=== PATIENT | female | born 1980 | race Caucasian/White ===

== ENCOUNTER 2017-06-20 13:15 | Outpatient (RCR) | payer BC ==
[~2017-06-20 13:15] MED LIST: CEPHALEXIN500 M1 PO; COLACE50 MG; FOLIC ACID 11 MG/TA1 PO; MOTRIN 600600 MG/TAB PO; PERCOCET 325 MG1 TA2 PO; PRENATAL VITAMI1 TAB PO
== END 2017-06-25 ==
LOC: WSOT
DX: Z47.89 Encounter for other orthopedic aftercare (principal)

== ENCOUNTER 2017-12-29 05:35 | Inpatient (IN) | payer MEDICAID ==
[~2017-12-29] VITALS: Ht 154.9 cm; Wt 83.2 kg
[2017-12-29] VITALS (18 sets, daily range): BP systolic 86–112; BP diastolic 45–68; PULSE 56–92; TEMP 98–98.7
[2017-12-29] MEDS ORDERED: COLACE 100100 MG/CAP PO (06:22)
[2017-12-29] MEDS ORDERED: UNISOM25 MG PO (06:23)
[2017-12-29 06:32] LABS: BASO % 0.3 % (0.0-2.0); EOS # 0.1 (0.0-0.7); EOS % 0.5 % (0-4.0); GRAN # 6.6 (1.4-6.5); HEMOGLOBIN 11.5 g/dl (12.5-16.0); LYMPH # 2.6 (1.2-3.4); LYMPH % 25.8 % (20.0-51.0); MEAN CELL VOLUME 87 fl (80.0-100.0); MEAN CORPUSCULAR HEMOGLOBIN 29 pg (27.0-31.0); MEAN CORPUSCULAR HGB CONC 33 g/dl (33.0-37.0); MEAN PLATELET VOLUME 8.9 fl (7.4-10.4); MONO # 0.7 (0.1-0.6); MONO % 6.9 % (1.7-9.3); PLATELET COUNT 213 K/mm3 (130-400); RED BLOOD COUNT 3.97 M/mm3 (4.10-5.30); REDCELL DISTRIBUTION WIDTH-CV 14.4 % (11.5-14.5)
[2017-12-29 06:33] LABS: HEMATOCRIT 34.5 % (37.0-47.0)
[2017-12-30 04:43] VITALS: BP 102/57; PULSE 79; TEMP 98.2
[2017-12-30 08:40] VITALS: BP 99/61; PULSE 74; TEMP 97.7
[2017-12-30 16:50] VITALS: BP 96/50; PULSE 68; TEMP 98.1
[2017-12-30 19:45] VITALS: BP 101/65; PULSE 72; TEMP 98.3
[2017-12-31] MEDS ORDERED: IBU800 M1 PO (08:49)
[2017-12-31] MEDS ORDERED: PERCOCET 325 MG1 TA2 PO (08:50)
[2017-12-31 09:15] VITALS: BP 106/68; PULSE 104; TEMP 98.6
== END 2017-12-31 13:30 | disposition home or self-care (01) | DRG 766 ==
LOC: OB 05:35 → LDR 06:43 → OB 12-31 13:30
PROVIDERS: Student in an Organized Health Care Education/Training Program
PROC: 10D00Z1 Extraction of Products of Conception, Low, Open Approach (ICD-10-PCS; principal; 2017-12-29)
PROC: 0UT70ZZ Resection of Bilateral Fallopian Tubes, Open Approach (ICD-10-PCS; 2017-12-29)
DX: O34.211 Maternal care for low transverse scar from previous cesarean delivery (principal); O99.820 Streptococcus B carrier state complicating pregnancy; O69.89X0 Labor and delivery complicated by other cord complications, not applicable or unspecified; Z30.2 Encounter for sterilization; Z3A.39 39 weeks gestation of pregnancy; Z37.0 Single live birth
CPT/HCPCS: J0690; J1885; J2175; J2405; J2590; J3010; J7120